=== PATIENT | male | born 1965 | race Hispanic/Latino ===

== ENCOUNTER → 2017-10-10 | Outpatient (CLI) | payer OTHER, MEDICARE ==
[~2017-10-10] MED LIST: ALLO100T PO; AMLO5TAB2 PO; BETA15CR38 TP; CETI10TA57 PO; FLUO60GE9 TP; FURO20TA4 PO; HYD25 GT; LEVO500T89 PO; LOSA100T29 PO; NYST15CR TP; NYST8800 MC
== END | disposition home or self-care (01) ==
LOC: OIH 11:34
PROVIDERS: ATTEND Family Medicine
DX: M47.894 Other spondylosis, thoracic region (principal)
CPT/HCPCS: 72070

== ENCOUNTER 2018-01-11 13:14 | Emergency (ER) | payer OTHER, MEDICARE ==
[2018-01-11 13:45] LABS: BASOPHILS % (AUTO) 3.7 % (0.0-5.0); EOSINOPHILS % (AUTO) 0.6 % (0.0-8.0); HEMATOCRIT 49.7 % (42-54); LYMPHOCYTES % (AUTO) 6.8 % (21.0-51.0); MEAN CORPUSCULAR HEMOGLOBIN 33.1 pg (27.0-33.0); MEAN CORPUSCULAR HGB CONC 34.3 g/dL (32.0-36.0); MEAN CORPUSCULAR VOLUME 96.5 fL (79-99); MONOCYTES % (AUTO) 10.2 % (3.0-13.0); NEUTROPHILS % (AUTO) 78.7 % (40.0-77.0); PLATELET COUNT (AUTO) 177 K/uL (130-400); RED BLOOD CELL COUNT(AUTO) 5.14 MIL/uL (4.50-6.20); RED CELL DISTRIBUTION WIDTH 14.4 % (11.0-15.5); WHITE BLOOD COUNT (AUTO) 10.7 K/uL (4.8-10.8)
[2018-01-11 13:48] LABS: APPEARANCE,URINE Clear (CLEAR); BILIRUBIN,URINE Negative (NEGATIVE); COLOR,URINE Yellow (YELLOW); GLUCOSE, URINE (UA) Negative (NEGATIVE); KETONES,URINE Negative (NEGATIVE); LEUKOCYTE ESTERASE ,URINE Negative (NEGATIVE); NITRATE,URINE Negative (NEGATIVE); OCCULT BLOOD,URINE Negative (NEGATIVE); PROTEIN,URINE 300 (NEGATIVE); UROBILINOGEN,URINE 0.2 mg/dL (0.2-1.0)
[2018-01-11] MEDS ORDERED: ONDANSETRON HCL MDV 20ML 2 MG/ML VIAL ONE (13:53)
[2018-01-11] MEDS ORDERED: KETOROLAC TROMETHAMINE 30MG/ML ONE (13:53)
[2018-01-11] MEDS ORDERED: SODIUM CHLORIDE 0.9% 1000ML 1,000 ML IV ONE (13:53)
[2018-01-11 13:55] LABS: CREATININE 2.2 mg/dL (0.5-1.5); POTASSIUM 4.1 mmol/L (3.5-5.1)
[2018-01-11 13:59] LABS: ALBUMIN 3.8 g/dL (3.5-5.0); BILIRUBIN,DIRECT 0.2 mg/dL (0.0-0.3); BILIRUBIN,TOTAL 0.7 mg/dL (0.2-1.0); TOTAL PROTEIN, SERUM 8.2 g/dL (6.0-8.3)
[2018-01-11 14:05] LABS: BACTERIA,URINE Rare /HPF (None Seen); HYALINE CASTS, URINE 0-1 /LPF (0-1 /LPF); RBC,URINE None Seen /HPF (0-1); SQUAMOUS EPITHELIAL CELL,UR Few /HPF (0-2); WBC,URINE None Seen /HPF (0-1)
[2018-01-11] MEDS ORDERED: CEFTRIAXONE SODIUM 1 GM ONE (14:54)
== END 2018-01-11 15:54 | disposition home or self-care (01) ==
LOC: EDH 13:14
DX: K57.32 Diverticulitis of large intestine without perforation or abscess without bleeding (principal); E11.9 Type 2 diabetes mellitus without complications; I10 Essential (primary) hypertension; M54.9 Dorsalgia, unspecified; G89.29 Other chronic pain; Z87.442 Personal history of urinary calculi
CPT/HCPCS: 36415; 74176; 80048; 80076; 81001; 83690; 84484; 85025; 93005; 96361; 96374; 96375; 99285; J0696; J1885; J7030

== ENCOUNTER → 2018-03-03 | Outpatient (CLI) | payer OTHER, MEDICARE | END | disposition home or self-care (01) | LOC: RAH 10:57 | PROVIDERS: ATTEND Family Medicine | DX: M79.605 Pain in left leg (principal); M79.604 Pain in right leg | CPT/HCPCS: 93925 ==

== ENCOUNTER → 2019-06-29 | Outpatient (CLI) | payer OTHER, MEDICARE ==
[~2019-06-29] MED LIST changes: -AMLO5TAB2 PO; +AMLO5TAB9 PO; -BETA15CR38 TP; +BETA15CR5 TP; +FLUO60GE TP; -FLUO60GE9 TP; -LOSA100T29 PO; +LOSA100T58 PO
== END | disposition home or self-care (01) ==
LOC: OIH 11:06
PROVIDERS: ATTEND Family Medicine
DX: M51.37 Other intervertebral disc degeneration, lumbosacral region (principal); M25.78 Osteophyte, vertebrae
CPT/HCPCS: 72100

== ENCOUNTER 2020-06-27 16:45 | Observation (INO) | payer OTHER, MEDICARE ==
[~2020-06-27] VITALS: Ht 172.7 cm; Wt 103.5 kg
[~2020-06-27 16:45] MED LIST changes: +AMLO-257 PO; -AMLO5TAB9 PO
[2020-06-27 17:12] LABS: EOSINOPHILS % (AUTO) 1.5 % (0.0-8.0); HEMATOCRIT 51.3 % (42-54); LYMPHOCYTES % (AUTO) 25.8 % (21.0-51.0); MEAN CORPUSCULAR HEMOGLOBIN 31.6 pg (27.0-33.0); MEAN CORPUSCULAR HGB CONC 32.4 g/dL (32.0-36.0); MEAN CORPUSCULAR VOLUME 97.7 fL (79-99); MONOCYTES % (AUTO) 8.1 % (3.0-13.0); NEUTROPHILS % (AUTO) 63.2 % (40.0-77.0); PLATELET COUNT (AUTO) 197 K/uL (130-400); RED BLOOD CELL COUNT(AUTO) 5.25 MIL/uL (4.50-6.20); RED CELL DISTRIBUTION WIDTH 13.2 % (11.0-15.5); WHITE BLOOD COUNT (AUTO) 7.1 K/uL (4.8-10.8)
[2020-06-27 17:28] LABS: CREATININE 2.2 mg/dL (0.5-1.5)
[2020-06-27 17:32] LABS: ALBUMIN 3.6 g/dL (3.5-5.0); BILIRUBIN,DIRECT 0.1 mg/dL (0.0-0.3); BILIRUBIN,TOTAL 0.2 mg/dL (0.2-1.0); TOTAL PROTEIN, SERUM 8.1 g/dL (6.0-8.3)
[2020-06-27 18:02] LABS: CREATINE KINASE, TOTAL 63 U/L (21-232); MYOGLOBIN 75 ng/mL (10-92); TROPONIN I < 0.04 ng/mL (0.00-0.06)
[2020-06-27 21:15] VITALS: BP 141/101
--- NOTE | 2020-06-27 21:15 | NUR ---
DIRECT ADMISSION New Patient came to the unit is wheelchair with admission ordered from Dr. Livingston for Chest pain and Diabetes. Patient stating that he has been having these funny feeling in his chest intermittently since last week. He stated that he was suppose to heav a test done but the date would not be until late June. He informed his doctor and was instructed to come to the hospital for admission. On examination a pleasant middle age male patient alert and oriented x 3 . Denies chest pain, dizziness, headache or any lightheadedness at this time. Vital signs BP 141/101, HR-86. 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 Saline lock with 18g IV access insitu to his left antecubital intact, flushed with normal saline. Admission assessment completed. Patient provided a sandwich as he did not eat dinner. Blood collected for cardiac panel as ordered. Patient informed about NPO status at midnight for his Lexiscan. Dr. Livingston was informed of patient's arrival to the unit earlier. Home medications reconciled, will inform him of elevated BP.
[2020-06-27] MEDS ORDERED: GLIP5POW MC (22:48)
[2020-06-27] MEDS ORDERED: METF-444 PO (22:48)
[2020-06-27] MEDS ORDERED: PRAV20TA4 PO (22:50)
[2020-06-27 23:20] VITALS: BP 138/88
[2020-06-27 23:22] LABS: CREATINE KINASE, TOTAL 56 U/L (21-232); TROPONIN I < 0.04 ng/mL (0.00-0.06)
--- NOTE | 2020-06-27 23:22 | NUR ---
Blood Pressure BP-133/88, HR-76, will continue to monitor BP.
[2020-06-27 23:46] LABS: MYOGLOBIN 83 ng/mL (10-92)
[2020-06-27] MEDS: ENOXAPARIN SODIUM 100 MG/1 ML SQ SCH (23:46)
[2020-06-28 03:45] VITALS: BP 151/38
[2020-06-28 04:17] VITALS: BP 131/90
[2020-06-28] MEDS ORDERED: LOSARTAN 100 MG TABLET PO SCH (06:15)
[2020-06-28] MEDS ORDERED: LOSARTAN 100 MG TABLET ONE (06:16)
--- NOTE | 2020-06-28 06:20 | NUR ---
ELEVATED BP AND HEADACHE PATIENT COMPLAINED OF HAVING A HEADACHE, BP 140/96, HR- 78. DR. GOMEZ INFORMED WITH ORDERS TO ADMINISTER LOSARTAN 100MG PO AND TYLENOL 2 TABLETS . PATIENT REFUSED THE TYLENOL, TOOK LOSARTAN WITH SIP OF WATER. MEDICATION ADMINISTERED ORDERED. BS-98, RESTING COMFORTABLY IN BED.
[2020-06-28 06:24] LABS: HEMATOCRIT 47.5 % (42-54); MEAN CORPUSCULAR HEMOGLOBIN 32.3 pg (27.0-33.0); MEAN CORPUSCULAR HGB CONC 33.3 g/dL (32.0-36.0); MEAN CORPUSCULAR VOLUME 97.1 fL (79-99); RED BLOOD CELL COUNT(AUTO) 4.89 MIL/uL (4.50-6.20); RED CELL DISTRIBUTION WIDTH 13.1 % (11.0-15.5); WHITE BLOOD COUNT (AUTO) 6.7 K/uL (4.8-10.8)
[2020-06-28 06:54] LABS: CARBON DIOXIDE 26 mmol/L (21-32); CHLORIDE 105 mmol/L (101-111); CREATINE KINASE, TOTAL 55 U/L (21-232); CREATININE 1.9 mg/dL (0.5-1.5); GLOMERULAR FILTR. RATE CALC 39 mL/min (>60); GLUCOSE,RANDOM 103 mg/dL (70-105); MYOGLOBIN 72 ng/mL (10-92); POTASSIUM 3.8 mmol/L (3.5-5.1); SODIUM SERUM 136 mmol/L (136-145); TROPONIN I < 0.04 ng/mL (0.00-0.06); UREA NITROGEN, BLOOD 42 mg/dL (7-18)
[2020-06-28 07:00] VITALS: BP 138/99
[2020-06-28] MEDS ORDERED: ACETAMINOPHEN 325 MG TAB ONE (07:10)
[2020-06-28] MEDS ORDERED: ACETAMINOPHEN 325 MG TAB PO SCH (07:15)
[2020-06-28] MEDS ORDERED: ASPIRIN 325 MG TABLET PO SCH (09:00)
[2020-06-28] MEDS: ENOXAPARIN SODIUM 100 MG/1 ML SQ SCH ×2 (09:00→21:30)
[2020-06-28] MEDS ORDERED: CLOPIDOGREL BISULFATE 75 MG TAB PO SCH (09:00)
[2020-06-28] MEDS: REGADENOSON 0.4 MG/5 ML PF SYG IVP SCH ×2 (11:45→12:23)
--- NOTE | 2020-06-28 12:00 | NUR ---
PATIENT OFF UNIT FOR PROCEDURE Addendum: 06/28/20 at 1216 by BAN DOUGLASS RN RN Amended: Links added.
--- NOTE | 2020-06-28 13:48 | NUR ---
PATIENT BACK IN ROOM FROM PROCEDURE XUISCAN, LUNCH TRAY ORDERED
[2020-06-28 14:17] VITALS: BP 128/94
--- NOTE | 2020-06-28 15:31 | NUR ---
CM NOTE OBSERVATION PATIENT, AWAITING POSS DISCHARGE IF LEXISCAN NEGATIVE. NO TRIGGER TO CM NO CONCERNS VOICED BY RN OR PATIENT DETAILED CM ASSESSMENT DEFERRED Addendum: 06/28/20 at 1533 by DAJUAN SANTOYO RN CM Amended: Links added.
[2020-06-28 16:00] VITALS: BP 135/98
--- NOTE | 2020-06-28 20:19 | NUR ---
DR GOMEZ NOTIFIED DR HOLBROOK ON retsCloudISCAN RESULTS , RECEIVED ORDERS FOR CARDIOLOGY , ORDERS PLACED.
[2020-06-28 20:32] VITALS: BP 128/80
[2020-06-29 00:01] VITALS: BP 131/86
[2020-06-29 04:19] VITALS: BP 127/90
[2020-06-29] MEDS: REGADENOSON 0.4 MG/5 ML PF SYG IVP SCH (08:01)
--- NOTE | 2020-06-29 08:15 | NUR ---
DR GOMEZ IN TO SEE PATIENT , ORDERS TO CHANGE CONSULT CARDIOLOGY TO DR ANSARI ORDER PLACED
[2020-06-29 08:36] VITALS: BP 136/93
[2020-06-29] MEDS ORDERED: ASPIRIN 325 MG TABLET PO SCH (09:00)
[2020-06-29] MEDS ORDERED: METOPROLOL SUCCINATE 50 MG TAB.SR.24H PO SCH (09:00)
[2020-06-29] MEDS ORDERED: DILTIAZEM HCL 120 MG CAP.SR.24H PO SCH (11:00)
[2020-06-29] MEDS ORDERED: ASPIRIN 81MG TAB.CHEW ONE (11:05)
[2020-06-29 12:35] VITALS: BP 121/83
--- NOTE | 2020-06-29 15:30 | NUR ---
DISCHARGE PATIENT GIVEN DISCHARGE INSTRUCTIONS AND VERBALIZED UNDERSTANDING, TELEMETRY UNIT NOTIFIED AND MONITOR REMOVED, IV REMOVED WITH CATHETER INTACT AND SITE DRESSED. PATIENT TO FOLLOW-UP WITH DR GOMEZ TOMORROW AND DR BRITTON ON THE Jun, DENIES PAIN AT THIS TIME . NO QUESTIONS OR CONCERNS VOICED AT THIS TIME AND PATIENT CALL FOR RIDE.
--- NOTE | 2020-06-29 15:45 | NUR ---
PATIENT TAKING TO LOBBY TO MET FAMILY VIA WHEELCHAIR
[2020-06-30] MEDS ORDERED: DILTIAZEM HCL 120 MG CAP.SR.24H PO SCH (09:00)
== END 2020-06-29 15:46 | disposition home or self-care (01) ==
LOC: EDH 16:45 → EDHIP 16:46 → 4DH 21:12
PROVIDERS: ADMIT Internal Medicine; ATTEND Internal Medicine
DX: R07.89 Other chest pain (principal); I12.9 Hypertensive chronic kidney disease with stage 1 through stage 4 chronic kidney disease, or unspecified chronic kidney disease; E11.22 Type 2 diabetes mellitus with diabetic chronic kidney disease; N18.30 Chronic kidney disease, stage 3 unspecified; G89.29 Other chronic pain; I24.9 Acute ischemic heart disease, unspecified; M10.9 Gout, unspecified; R00.2 Palpitations; E78.5 Hyperlipidemia, unspecified; I49.3 Ventricular premature depolarization; Z79.84 Long term (current) use of oral hypoglycemic drugs; Z79.899 Other long term (current) drug therapy; Z88.6 Allergy status to analgesic agent; Z88.8 Allergy status to other drugs, medicaments and biological substances
CPT/HCPCS: 36415 ×2; 78452; 80048; 80053; 82550 ×3; 82948 ×7; 83874 ×3; 84484 ×3; 85025; 85027; 93005; 93017; 96372 ×2; 99285; A9500 ×2; G0378 ×9; J1650 ×2; J2785; 80076; 96374

== ENCOUNTER → 2020-12-01 | Outpatient (CLI) | payer OTHER, MEDICARE ==
[~2020-12-01] MED LIST changes: +GLIP5POW MC; +METF-444 PO; +PRAV20TA4 PO
== END | disposition home or self-care (01) ==
LOC: RAH 09:59
PROVIDERS: ATTEND Internal Medicine Gastroenterology
DX: K31.84 Gastroparesis (principal); R14.0 Abdominal distension (gaseous)
CPT/HCPCS: 78264; A9541

== ENCOUNTER 2021-08-07 07:58 | Day surgery (SDC) | payer OTHER, MEDICARE ==
[~2021-08-07 07:58] MED LIST changes: -LEVO500T89 PO; +LEVO500T90 PO
[2021-08-07] MEDS ORDERED: 0.9%NACL 1000ML 1,000 ML IV ONE (10:01)
[2021-08-07] MEDS ORDERED: IOHEXOL-350 75 ML VIAL IV ONE (10:34)
== END 2021-08-07 14:00 | disposition home or self-care (01) ==
LOC: DAH 07:58 → EDSTATUS 08:00 → DAH 14:00
PROVIDERS: ATTEND Internal Medicine Gastroenterology
DX: N40.0 Benign prostatic hyperplasia without lower urinary tract symptoms (principal); R94.4 Abnormal results of kidney function studies; R10.84 Generalized abdominal pain; R63.4 Abnormal weight loss; K29.50 Unspecified chronic gastritis without bleeding
CPT/HCPCS: 74178; 82948; 96360; 96361; A4606; J7030; Q9967

== ENCOUNTER 2024-01-14 13:45 | Observation (INO) | payer OTHER, MEDICARE ==
[~2024-01-14] VITALS: Ht 157.5 cm; Wt 84.0 kg
[2024-01-14 14:49] LABS: BASOPHILS # (AUTO) 0.05 K/uL (0.00-0.20); BASOPHILS % (AUTO) 0.7 % (0.0-5.0); EOSINOPHILS # (AUTO) 0.13 K/uL (0.00-0.70); EOSINOPHILS % (AUTO) 1.8 % (0.0-8.0); HEMATOCRIT 44.5 % (42-54); IMMATURE GRANULOCYTE ABSOLUTE 0.05 K/uL (0-1); LYMPHOCYTES # (AUTO) 1.1 K/uL (1.0-4.8); LYMPHOCYTES % (AUTO) 15.5 % (21.0-51.0); MEAN CORPUSCULAR HEMOGLOBIN 32.4 pg (27.0-33.0); MEAN CORPUSCULAR HGB CONC 32.8 g/dL (32.0-36.0); MEAN CORPUSCULAR VOLUME 98.9 fL (79-99); MONOCYTES # (AUTO) 0.9 K/uL (0.1-1.0); MONOCYTES % (AUTO) 12.3 % (3.0-13.0); NEUTROPHILS # (AUTO) 5.1 K/uL (1.8-7.7); PLATELET COUNT (AUTO) 123 K/uL (130-400); RED CELL DISTRIBUTION WIDTH 13.7 % (11.0-15.5); WHITE BLOOD COUNT (AUTO) 7.4 K/uL (4.8-10.8)
[2024-01-14 15:05] LABS: CREATININE 1.9 mg/dL (0.5-1.3); POTASSIUM 4.3 mmol/L (3.5-5.1)
[2024-01-14 15:07] LABS: INR <= 0.93 (0.85-1.15)
[2024-01-14 15:09] LABS: PARTIAL THROMBOPLASTIN TIME 27.7 SEC (26.3-35.5)
[2024-01-14 15:11] LABS: ALBUMIN 3.2 g/dL (3.5-5.0); BILIRUBIN,TOTAL 0.4 mg/dL (0.2-1.0)
[2024-01-14 15:53] LABS: D-DIMER 9001 ng/mL (0-500)
[2024-01-14] MEDS ORDERED: HEPARIN 25,000 UNITS/250ML D5W 250 ML IV SCH (19:30)
[2024-01-14] MEDS: ENOXAPARIN SODIUM 100 MG/1 ML SQ SCH ×2 (20:53→21:00)
[2024-01-15 05:45] VITALS: BP 154/108; PULSE 65; RESP 20
[2024-01-15 06:46] LABS: BASOPHILS # (AUTO) 0.04 K/uL (0.00-0.20); BASOPHILS % (AUTO) 0.7 % (0.0-5.0); EOSINOPHILS # (AUTO) 0.18 K/uL (0.00-0.70); EOSINOPHILS % (AUTO) 3.1 % (0.0-8.0); HEMATOCRIT 41.7 % (42-54); IMMATURE GRANULOCYTE ABSOLUTE 0.06 K/uL (0-1); LYMPHOCYTES # (AUTO) 1.3 K/uL (1.0-4.8); MEAN CORPUSCULAR HGB CONC 32.9 g/dL (32.0-36.0); MEAN CORPUSCULAR VOLUME 97.4 fL (79-99); MONOCYTES # (AUTO) 0.8 K/uL (0.1-1.0); MONOCYTES % (AUTO) 13.2 % (3.0-13.0); NEUTROPHILS # (AUTO) 3.5 K/uL (1.8-7.7); PLATELET COUNT (AUTO) 129 K/uL (130-400); RED BLOOD CELL COUNT(AUTO) 4.28 MIL/uL (4.50-6.20); RED CELL DISTRIBUTION WIDTH 13.7 % (11.0-15.5); WHITE BLOOD COUNT (AUTO) 5.8 K/uL (4.8-10.8)
[2024-01-15 07:00] LABS: ALBUMIN 3.1 g/dL (3.5-5.0); BILIRUBIN,TOTAL 0.6 mg/dL (0.2-1.0); CREATININE 1.7 mg/dL (0.5-1.3); POTASSIUM 4.3 mmol/L (3.5-5.1); TOTAL PROTEIN, SERUM 6.6 g/dL (6.0-8.3)
[2024-01-15] MEDS: CEFTRIAXONE 1G VIAL IVPB SCH (07:15)
[2024-01-15] MEDS ORDERED: PROP10TA72 PO (07:59)
[2024-01-15] MEDS ORDERED: LISI20TA24 PO (07:59)
[2024-01-15] MEDS ORDERED: FAMO40TA7 PO (07:59)
[2024-01-15] MEDS ORDERED: PRAV40TA3 PO (07:59)
[2024-01-15 08:00] VITALS: BP 150/105; PULSE 66; RESP 18
[2024-01-15] MEDS ORDERED: METO5TAB2 PO (08:00)
[2024-01-15] MEDS ORDERED: ESOM40CA54 PO (08:01)
[2024-01-15 08:45] VITALS: O2SAT 99
[2024-01-15] MEDS: PROPRANOLOL HCL 10 MG TAB PO SCH (09:05)
[2024-01-15] MEDS: APIXABAN 5 MG TABLET PO SCH (09:05)
[2024-01-15] MEDS: LISINOPRIL 20 MG TABLET PO SCH (09:05)
[2024-01-15] MEDS: PANTOPRAZOLE 40 MG TAB DR PO SCH (09:06)
[2024-01-15] MEDS: METOCLOPRAMIDE 5 MG TABLET PO SCH (11:48)
[2024-01-15 12:04] VITALS: BP 159/102; PULSE 69; RESP 18
[2024-01-15 13:35] VITALS: BP 159/102
[2024-01-15] MEDS: CLONIDINE HCL 0.1 MG TABLET PO ONE (13:35)
[2024-01-15] MEDS ORDERED: NON-FORMULARY MEDICATION 1 EACH (Famotidine 1 TAB) PO SCH (21:00)
[2024-01-15] MEDS ORDERED: ATORVASTATIN 10 MG TABLET PO SCH (21:00)
== END 2024-01-15 14:05 | disposition home or self-care (01) ==
LOC: EDH 13:45 → EDHIP 19:57 → 4CH 01-15 05:22
PROVIDERS: ADMIT Internal Medicine; ATTEND Internal Medicine
DX: I82.402 Acute embolism and thrombosis of unspecified deep veins of left lower extremity (principal); I10 Essential (primary) hypertension; E78.5 Hyperlipidemia, unspecified; E78.00 Pure hypercholesterolemia, unspecified; Z86.718 Personal history of other venous thrombosis and embolism; Z79.899 Other long term (current) drug therapy
CPT/HCPCS: 96372; 99284; 80053 ×2; 85025 ×2; 85378; 85610; 85730; 36415 ×2; 93971; 96374; 71045; 78582; G0378 ×16; J1650; J0696; A9540; A9558; J1644

== ENCOUNTER → 2024-02-12 | Outpatient (CLI) | payer OTHER, MEDICARE ==
[~2024-02-12] MED LIST changes: -ALLO100T PO; -AMLO-257 PO; -BETA15CR5 TP; -CETI10TA57 PO; +ESOM40CA54 PO; +FAMO40TA7 PO; -FLUO60GE TP; -FURO20TA4 PO; -GLIP5POW MC; -HYD25 GT; -LEVO500T90 PO; +LISI20TA24 PO; -LOSA100T58 PO; -METF-444 PO; +METO5TAB2 PO; -NYST15CR TP; -NYST8800 MC; -PRAV20TA4 PO; +PRAV40TA3 PO; +PROP10TA72 PO
== END | disposition home or self-care (01) ==
LOC: RAH 08:34
PROVIDERS: ATTEND Internal Medicine
DX: N28.1 Cyst of kidney, acquired (principal); N32.89 Other specified disorders of bladder; R31.0 Gross hematuria
CPT/HCPCS: 76770

== ENCOUNTER → 2025-07-21 | Outpatient (CLI) | payer OTHER, MEDICARE ==
[~2025-07-21] MED LIST changes: +BACL10TA PO; +CYCL10TA16 PO; +DAPA10TA PO; -ESOM40CA54 PO; +ESOM40CA66 PO; +HYDR-4060 PO; +IOHEXOL-350 75 ML VIAL IV ONE; +MECL25TA39 PO; -METO5TAB2 PO; -PRAV40TA3 PO; +PRAV40TA62 PO
--- NOTE | 2025-07-21 22:02 | HMCIMG ---
EXAM: CT ABDOMEN WITH AND WITHOUT CONTRAST (MULTIPHASIC LIVER PROTOCOL) Technique: Helical computed tomography of the abdomen performed without contrast, followed by multiphasic post-contrast imaging (arterial, portal venous, and delayed phases) with thin-section axial acquisition and coronal/sagittal reformations; lung and soft-tissue algorithms reviewed. Dose metrics: CTDIvol 104.4 mGy; DLP 3,443.10 mGy???cm. Oral contrast administered. Contrast: Intravenous iodinated contrast administered (standard dose). Clinical Information: Hepatic fibrosis???advanced fibrosis; evaluate liver. Findings: Lung bases: Clear without consolidation or pleural effusion. Liver: Enlarged, measuring 18 cm craniocaudal; diffuse hepatic steatosis with focal areas of fat sparing; no focal hepatic mass identified across noncontrast, arterial, portal venous, or delayed phases. Gallbladder and biliary tree: Gallbladder wall not thickened; post-contrast enhancement pattern unremarkable; multiple intraluminal polypoid lesions with the largest measuring 23 mm, compatible with gallbladder polyps; no biliary ductal dilatation. Pancreas: Normal size and contour without ductal dilatation or peripancreatic inflammatory change. Spleen: Normal size and homogeneous enhancement; no focal lesion. Adrenals: Normal bilaterally. Kidneys and ureters: Kidneys grossly normal in size and contour with mild symmetric renal parenchymal changes; a few tiny subcentimeter cortical cysts in both kidneys; no hydronephrosis or renal/ureteral calculus. Stomach and bowel: Stomach and visualized bowel loops within normal caliber; no wall thickening or obstruction identified. Peritoneum and mesentery: No free fluid, free air, or mesenteric edema. Lymph nodes: No pathologically enlarged abdominal lymph nodes. Vasculature: Aorta and major abdominal vessels normal in course and caliber. Abdominal wall/soft tissues: No hernia or fluid collection. Osseous structures: Prior L4???L5 laminectomy with bilateral transpedicular screw fixation; bridging osteophytes at L1???L2 and L2???L3; no acute osseous abnormality. Impression: * Hepatomegaly (18 cm) with hepatic steatosis and focal fat sparing; no focal hepatic lesion identified on multiphasic imaging. * Multiple gallbladder polyps, largest 23 mm. Given size ?10 mm, surgical consultation for cholecystectomy is recommended per guideline-based management (correlate with targeted [id number] ultrasound for confirmation and baseline measurement if not already performed). * Mild bilateral renal parenchymal changes with tiny bilateral simple cortical cysts; no hydronephrosis or nephrolithiasis. * Prior L4???L5 posterior instrumentation and degenerative bridging osteophytes at L1???L3. /[place]
== END | disposition home or self-care (01) ==
LOC: RAH 08:00
PROVIDERS: ATTEND Internal Medicine Gastroenterology
DX: K76.0 Fatty (change of) liver, not elsewhere classified (principal); K74.02 Hepatic fibrosis, advanced fibrosis; N28.1 Cyst of kidney, acquired; M25.78 Osteophyte, vertebrae; K82.4 Cholesterolosis of gallbladder
CPT/HCPCS: 74170; Q9967